=== PATIENT | male | born 1945 | race Caucasian/White ===

== ENCOUNTER 2018-03-19 16:09 | Emergency (ER) | payer OTHER ==
[~2018-03-19] VITALS: Ht 175.3 cm; Wt 100.0 kg
[~2018-03-19 16:09] MED LIST: ASA/1TAB6 PO; GABA-290 PO
[2018-03-19] MEDS ORDERED: CYCLOBENZAPRINE 10MG TABLET PO ONE (17:15)
[2018-03-19] MEDS ORDERED: KETOROLAC 30MG/ML VIAL IM ONE (17:15)
[2018-03-19 19:39] VITALS: BP 120/70
== END 2018-03-19 19:40 | disposition home or self-care (01) ==
LOC: ER 16:09
DX: M54.5 Low back pain (principal); I69.354 Hemiplegia and hemiparesis following cerebral infarction affecting left non-dominant side; I25.2 Old myocardial infarction; I10 Essential (primary) hypertension; E11.9 Type 2 diabetes mellitus without complications; Z87.891 Personal history of nicotine dependence; Z98.890 Other specified postprocedural states; Z79.899 Other long term (current) drug therapy
CPT/HCPCS: 72131; 96372; 99284; J1885

== ENCOUNTER 2018-05-10 22:07 | Inpatient (IN) | payer OTHER ==
[~2018-05-10] VITALS: Ht 177.8 cm; Wt 95.3 kg
[2018-05-11] MEDS ORDERED: SODIUM CHLORIDE 0.9% 1,000 ML IV ONE (00:40)
[2018-05-11] MEDS ORDERED: ONDANSETRON HCL 4MG/2ML INJ IV STA (00:40)
[2018-05-11 01:14] LABS: BASOPHILS % 0.5 % (0.0-2.0); HEMATOCRIT. 36.6 % (42.0-52.0); HEMOGLOBIN. 12.4 g/dL (14.0-18.0); LYMPHOCYTES % 14.5 % (20.0-50.0); MEAN CORPUSCULAR HEMOGLOBIN 30.7 pg (28.0-32.0); MEAN CORPUSCULAR VOLUME 90.6 fL (80.0-94.0); MEAN PLATELET VOLUME 6.5 fl (7.4-10.4); MONOCYTES % 6.5 % (2.0-8.0); NEUTROPHILS % 76.5 % (40.0-76.0); PLATELET 211 x1000/uL (130-400); RED BLOOD CELL COUNT 4.04 mill/uL (4.7-6.1); RED CELL DISTRIBUTION WIDTH 13.6 % (11.6-14.6)
[2018-05-11 01:18] LABS: CHLORIDE 112 mEq/L (98-107)
[2018-05-11 01:19] LABS: PROTHROMBIN TIME 10.1 sec (9.1-11.1)
[2018-05-11] MEDS ORDERED: ASPIRIN 81MG TABLET PO SCH (01:45)
[2018-05-11] MEDS ORDERED: CLONIDINE 0.1MG TABLET PO PRN (02:45)
[2018-05-11 05:27] LABS: CLARITY URINE CLEAR (CLEAR); COLOR URINE YELLOW (YELLOW); KETONES URINE TRACE (NEGATIVE); LEUKOCYTE ESTERASE URINE NEGATIVE (NEGATIVE); NITRITE URINE NEGATIVE (NEGATIVE); OCCULT BLOOD URINE 2+ (NEGATIVE); PH URINE 5.5 (4.5-8.0); PROTEIN URINE 4+ (NEGATIVE); UROBILINOGEN URINE 0.2 E.U./dL (0.2-1.0)
[2018-05-11 08:00] VITALS: BP 191/86
[2018-05-11] MEDS ORDERED: ONDANSETRON HCL 4MG/2ML INJ IV PRN (11:00)
[2018-05-11] MEDS ORDERED: DOCUSATE SODIUM 100MG CAPSULE PO PRN (11:00)
[2018-05-11] MEDS ORDERED: IPRATROPIUM/ALBUTEROL 0.5-3(2.5)MG/3ML NEB INH PRN (11:00)
[2018-05-11] MEDS ORDERED: GUAIFENESIN 200MG/10ML SUGAR FREE UDC PO PRN (11:00)
[2018-05-11] MEDS ORDERED: ACETAMINOPHEN 650MG/20.3ML UDC GT PRN (11:00)
[2018-05-11] MEDS ORDERED: ACETAMINOPHEN 650MG SUPP PR PRN (11:00)
[2018-05-11] MEDS ORDERED: DEXTROSE 50% WATER 50ML SYRINGE IV PRN (11:00)
[2018-05-11] MEDS ORDERED: FOLI0.4T2 MT (11:49)
[2018-05-11] MEDS ORDERED: CLOP75TA16 PO (11:49)
[2018-05-11] MEDS ORDERED: BACL-141 PO (11:49)
[2018-05-11] MEDS ORDERED: GEMF600T4 PO (11:49)
[2018-05-11] MEDS ORDERED: CYAN-33 PO (11:49)
[2018-05-11] MEDS ORDERED: CLON-457 PO (11:49)
[2018-05-11] MEDS ORDERED: METO-385 PO (11:49)
[2018-05-11] MEDS ORDERED: OMEG-79 PO (11:49)
[2018-05-11 12:00] VITALS: BP 156/87
[2018-05-11] MEDS: LOSARTAN POTASSIUM 100 MG TABLET PO SCH (12:20)
[2018-05-11] MEDS: ASPIRIN 81MG TABLET PO SCH (12:20)
[2018-05-11] MEDS: ENOXAPARIN 40MG/0.4ML SYR SUBCUT SCH (12:20)
[2018-05-11] MEDS: CLOPIDOGREL 75MG TABLET PO SCH (12:20)
[2018-05-11] MEDS: SODIUM CHLORIDE 0.45% 1,000 ML IV SCH (12:21)
[2018-05-11] MEDS: INSULIN LISPRO 100 UNITS/ML SUBCUT SCH ×3 (12:22→21:05)
[2018-05-11] MEDS: BLOOD SUGAR DIAGNOSTIC STRIP TEST SCH ×3 (12:23→21:05)
[2018-05-11] MEDS: SODIUM CHLORIDE 0.9% INJ 3ML FLUSH IVF SCH ×2 (14:00→21:07)
[2018-05-11 16:00] VITALS: BP 142/80
[2018-05-11 16:55] LABS: CREATINE KINASE MB FRACTION 3.8 ng/mL (0.5-3.6)
[2018-05-11 17:28] LABS: CLARITY URINE CLEAR (CLEAR); COLOR URINE YELLOW (YELLOW); KETONES URINE NEGATIVE (NEGATIVE); LEUKOCYTE ESTERASE URINE NEGATIVE (NEGATIVE); NITRITE URINE NEGATIVE (NEGATIVE); OCCULT BLOOD URINE 2+ (NEGATIVE); PH URINE 5.5 (4.5-8.0); PROTEIN URINE 4+ (NEGATIVE); SPECIFIC GRAVITY URINE 1.018 (1.005-1.030); UROBILINOGEN URINE 0.2 E.U./dL (0.2-1.0)
[2018-05-11 17:45] LABS: *AMPHETAMINES SCREEN URINE NEGATIVE (NEGATIVE); *BARBITURATES SCREEN URINE NEGATIVE (NEGATIVE); *BENZODIAZEPINES SCREEN URINE NEGATIVE (NEGATIVE); *COCAINE SCREEN URINE NEGATIVE (NEGATIVE); METHADONE URINE SCREEN NEGATIVE (NEGATIVE); OPIATES URINE SCREEN PRESUMTIVE POSITIVE (NEGATIVE)
[2018-05-11 17:46] LABS: CANNABINOID URINE SCREEN NEGATIVE (NEGATIVE); PHENCYCLIDINE URINE SCREEN NEGATIVE (NEGATIVE)
[2018-05-11 20:00] VITALS: BP 212/96
[2018-05-11] MEDS: METOPROLOL TARTRATE 50MG TABLET PO SCH (20:37)
[2018-05-11] MEDS: AMLODIPINE 5MG TABLET PO SCH (20:37)
[2018-05-11] MEDS: CLONIDINE 0.1MG TABLET PO PRN (20:38)
[2018-05-11] MEDS: ATORVASTATIN CALCIUM 40MG TABLET PO SCH (20:42)
[2018-05-11 21:00] VITALS: BP 185/80
[2018-05-11 23:09] LABS: CREATINE KINASE MB FRACTION 3.6 ng/mL (0.5-3.6)
[2018-05-12] MEDS: SODIUM CHLORIDE 0.45% 1,000 ML IV SCH ×2 (00:20→13:40)
[2018-05-12 00:31] VITALS: BP 117/61
[2018-05-12 04:00] VITALS: BP 185/97
[2018-05-12 05:47] LABS: BASOPHILS % 0.3 % (0.0-2.0); EOSINOPHILS % 3.9 % (0.0-5.0); HEMATOCRIT. 37.3 % (42.0-52.0); HEMOGLOBIN. 12.7 g/dL (14.0-18.0); LYMPHOCYTES % 18.3 % (20.0-50.0); MEAN CORPUSCULAR HEMOGLOBIN 31.4 pg (28.0-32.0); MEAN CORPUSCULAR VOLUME 91.9 fL (80.0-94.0); MEAN PLATELET VOLUME 6.7 fl (7.4-10.4); MONOCYTES % 7.2 % (2.0-8.0); NEUTROPHILS % 70.3 % (40.0-76.0); PLATELET 187 x1000/uL (130-400); RED BLOOD CELL COUNT 4.06 mill/uL (4.7-6.1)
[2018-05-12] MEDS: SODIUM CHLORIDE 0.9% INJ 3ML FLUSH IVF SCH ×3 (05:53→22:12)
[2018-05-12 05:55] LABS: CHLORIDE 109 mEq/L (98-107)
[2018-05-12] MEDS: BLOOD SUGAR DIAGNOSTIC STRIP TEST SCH ×4 (05:58→21:00)
[2018-05-12 06:04] LABS: LDL CHOLESTEROL 175 mg/dL (5-100)
[2018-05-12 06:06] LABS: HDL CHOLESTEROL 39 mg/dL (40-59)
[2018-05-12] MEDS: ENOXAPARIN 40MG/0.4ML SYR SUBCUT SCH (08:15)
[2018-05-12] MEDS: INSULIN LISPRO 100 UNITS/ML SUBCUT SCH ×4 (08:15→21:00)
[2018-05-12] MEDS: LOSARTAN POTASSIUM 100 MG TABLET PO SCH (08:16)
[2018-05-12] MEDS: CLOPIDOGREL 75MG TABLET PO SCH (08:16)
[2018-05-12] MEDS: AMLODIPINE 5MG TABLET PO SCH ×2 (08:16→22:11)
[2018-05-12] MEDS: ASPIRIN 81MG TABLET PO SCH (08:17)
[2018-05-12] MEDS: METOPROLOL TARTRATE 50MG TABLET PO SCH ×2 (08:24→21:00)
[2018-05-12 08:29] VITALS: BP 194/80
[2018-05-12] MEDS: CLONIDINE 0.1MG TABLET PO PRN (12:24)
[2018-05-12 12:25] VITALS: BP 187/87
[2018-05-12] MEDS: CLONIDINE 0.2MG TABLET PO SCH ×2 (14:00→22:11)
[2018-05-12 16:47] VITALS: BP 162/63
[2018-05-12 20:24] VITALS: BP 162/82
[2018-05-12] MEDS: ATORVASTATIN CALCIUM 40MG TABLET PO SCH (22:11)
[2018-05-13 00:48] VITALS: BP 139/75
[2018-05-13] MEDS: SODIUM CHLORIDE 0.45% 1,000 ML IV SCH (03:04)
[2018-05-13] MEDS: ACETAMINOPHEN 325MG TABLET PO PRN ×2 (03:04→08:33)
[2018-05-13 04:40] VITALS: BP 176/79
[2018-05-13] MEDS: CLONIDINE 0.2MG TABLET PO SCH (06:26)
[2018-05-13 06:27] LABS: BASOPHILS % 0.3 % (0.0-2.0); EOSINOPHILS % 3.7 % (0.0-5.0); HEMATOCRIT. 37.5 % (42.0-52.0); HEMOGLOBIN. 12.9 g/dL (14.0-18.0); LYMPHOCYTES % 18.6 % (20.0-50.0); MEAN CORPUSCULAR HEMOGLOBIN 31.2 pg (28.0-32.0); MEAN CORPUSCULAR VOLUME 90.5 fL (80.0-94.0); MONOCYTES % 8.8 % (2.0-8.0); NEUTROPHILS % 68.6 % (40.0-76.0); PLATELET 155 x1000/uL (130-400); RED BLOOD CELL COUNT 4.14 mill/uL (4.7-6.1); RED CELL DISTRIBUTION WIDTH 13.3 % (11.6-14.6)
[2018-05-13] MEDS: SODIUM CHLORIDE 0.9% INJ 3ML FLUSH IVF SCH (06:27)
[2018-05-13] MEDS: BLOOD SUGAR DIAGNOSTIC STRIP TEST SCH (06:27)
[2018-05-13] MEDS: ENOXAPARIN 40MG/0.4ML SYR SUBCUT SCH (08:32)
[2018-05-13] MEDS: LOSARTAN POTASSIUM 100 MG TABLET PO SCH (08:33)
[2018-05-13] MEDS: CLOPIDOGREL 75MG TABLET PO SCH (08:33)
[2018-05-13] MEDS: ASPIRIN 81MG TABLET PO SCH (08:33)
[2018-05-13 08:45] VITALS: BP 109/70
[2018-05-13] MEDS: INSULIN LISPRO 100 UNITS/ML SUBCUT SCH (08:49)
[2018-05-13] MEDS: METOPROLOL TARTRATE 50MG TABLET PO SCH (08:50)
[2018-05-13] MEDS: AMLODIPINE 5MG TABLET PO SCH (08:50)
[2018-05-13 11:31] VITALS: BP 109/70
[2018-05-13] MEDS ORDERED: ATORVASTATIN CALCIUM 20MG TABLET PO SCH (21:00)
== END 2018-05-13 12:26 | disposition home health service (06) | DRG 682 ==
LOC: ER 22:07 → 6WST 05-11 01:55 → ENRESERV 05-11 07:28
PROVIDERS: ADMIT Internal Medicine; ATTEND Internal Medicine
DX: N17.9 Acute kidney failure, unspecified (principal); G93.41 Metabolic encephalopathy; I50.32 Chronic diastolic (congestive) heart failure; I13.0 Hypertensive heart and chronic kidney disease with heart failure and stage 1 through stage 4 chronic kidney disease, or unspecified chronic kidney disease; I69.354 Hemiplegia and hemiparesis following cerebral infarction affecting left non-dominant side; N18.4 Chronic kidney disease, stage 4 (severe); E86.0 Dehydration; D64.9 Anemia, unspecified; K40.20 Bilateral inguinal hernia, without obstruction or gangrene, not specified as recurrent; E11.65 Type 2 diabetes mellitus with hyperglycemia; E11.40 Type 2 diabetes mellitus with diabetic neuropathy, unspecified; I25.10 Atherosclerotic heart disease of native coronary artery without angina pectoris; G47.33 Obstructive sleep apnea (adult) (pediatric); E66.9 Obesity, unspecified; E78.5 Hyperlipidemia, unspecified; N20.0 Calculus of kidney; M48.02 Spinal stenosis, cervical region; E11.22 Type 2 diabetes mellitus with diabetic chronic kidney disease; K57.30 Diverticulosis of large intestine without perforation or abscess without bleeding; Z87.442 Personal history of urinary calculi; Z87.891 Personal history of nicotine dependence; Z95.5 Presence of coronary angioplasty implant and graft; Z90.49 Acquired absence of other specified parts of digestive tract; I25.2 Old myocardial infarction; Z82.49 Family history of ischemic heart disease and other diseases of the circulatory system; Z68.30 Body mass index [BMI] 30.0-30.9, adult; Z79.1 Long term (current) use of non-steroidal anti-inflammatories (NSAID); Z79.899 Other long term (current) drug therapy
CPT/HCPCS: 36415; 71045; 76770; 80048; 80061; 80305; 82140; 82550; 82553; 82962; 83036; 83605; 84484; 93005; 93306; 96361; 96372; 96374; 97116; 97162; 99285; J1650; J1815; J2405; J7030

== ENCOUNTER 2018-09-02 17:40 | Emergency (ER) | payer OTHER ==
[~2018-09-02] VITALS: Ht 175.3 cm; Wt 100.0 kg
[~2018-09-02 17:40] MED LIST changes: +BACL-141 PO; +CLON-457 PO; +CLOP75TA16 PO; +CYAN-33 PO; +FOLI0.4T2 MT; +GEMF600T4 PO; +METO-385 PO; +OMEG-79 PO
[2018-09-02] MEDS ORDERED: INSLIS SUBCUT (17:49)
[2018-09-02] MEDS ORDERED: SODIUM CHLORIDE 0.9% 1,000 ML IV ONE (19:51)
[2018-09-02 20:51] LABS: BASOPHILS % 0.5 % (0.0-2.0); EOSINOPHILS % 2.2 % (0.0-5.0); HEMATOCRIT. 35.8 % (42.0-52.0); HEMOGLOBIN. 12.5 g/dL (14.0-18.0); MEAN CORPUSCULAR HEMOGLOBIN 32.1 pg (28.0-32.0); MEAN CORPUSCULAR VOLUME 91.7 fL (80.0-94.0); MEAN PLATELET VOLUME 7.1 fl (7.4-10.4); MONOCYTES % 7.9 % (2.0-8.0); NEUTROPHILS % 69.4 % (40.0-76.0); PLATELET 195 x1000/uL (130-400); RED CELL DISTRIBUTION WIDTH 14.4 % (11.6-14.6)
[2018-09-02 20:55] LABS: CHLORIDE 105 mEq/L (98-107)
[2018-09-02 21:02] LABS: BETA HYDROXYBUTYRATE 0.1 mMol/L (0.0-0.3)
[2018-09-02] MEDS ORDERED: INSULIN REGULAR (HUMULIN R) 300UNITS/3ML SUBCUT ONE ×2 (21:45→23:30)
[2018-09-02 23:03] LABS: CLARITY URINE CLEAR (CLEAR); COLOR URINE YELLOW (YELLOW); KETONES URINE NEGATIVE (NEGATIVE); LEUKOCYTE ESTERASE URINE NEGATIVE (NEGATIVE); NITRITE URINE NEGATIVE (NEGATIVE); OCCULT BLOOD URINE TRACE (NEGATIVE); PH URINE 5.5 (4.5-8.0); PROTEIN URINE 3+ (NEGATIVE); SPECIFIC GRAVITY URINE 1.022 (1.005-1.030); UROBILINOGEN URINE 0.2 E.U./dL (0.2-1.0)
[2018-09-03 01:35] VITALS: BP 117/69
== END 2018-09-03 01:35 | disposition home or self-care (01) ==
LOC: ER 17:40
DX: E11.22 Type 2 diabetes mellitus with diabetic chronic kidney disease (principal); E11.65 Type 2 diabetes mellitus with hyperglycemia; I12.9 Hypertensive chronic kidney disease with stage 1 through stage 4 chronic kidney disease, or unspecified chronic kidney disease; N18.9 Chronic kidney disease, unspecified; D63.1 Anemia in chronic kidney disease; I25.2 Old myocardial infarction; Z86.73 Personal history of transient ischemic attack (TIA), and cerebral infarction without residual deficits; Z98.890 Other specified postprocedural states; Z79.4 Long term (current) use of insulin; Z91.14 Patient's other noncompliance with medication regimen
CPT/HCPCS: 36415; 80053; 81003; 82010; 82962; 83605; 85025; 93005; 96360; 96372; 99284; J1815; J7030

== ENCOUNTER 2019-07-14 14:52 | Inpatient (IN) | payer OTHER ==
[~2019-07-14] VITALS: Ht 177.8 cm; Wt 96.2 kg
[~2019-07-14 14:52] MED LIST changes: -CLOP75TA16 PO; +CLOP75TA4 PO; -GEMF600T4 PO; +GEMF600T5 PO; +INSLIS SUBCUT
[2019-07-14 17:48] LABS: BASOPHILS % 1.3 % (0.0-2.0); EOSINOPHILS % 3.2 % (0.0-5.0); HEMATOCRIT. 31.7 % (42.0-52.0); HEMOGLOBIN. 10.8 g/dL (14.0-18.0); LYMPHOCYTES % 14.2 % (20.0-50.0); MEAN CORPUSCULAR HEMOGLOBIN 31.4 pg (28.0-32.0); MEAN CORPUSCULAR VOLUME 92.7 fL (80.0-94.0); MEAN PLATELET VOLUME 6.7 fl (7.4-10.4); MONOCYTES % 8.9 % (2.0-8.0); NEUTROPHILS % 72.4 % (40.0-76.0); PLATELET 181 x1000/uL (130-400); RED BLOOD CELL COUNT 3.42 mill/uL (4.7-6.1); RED CELL DISTRIBUTION WIDTH 14.4 % (11.6-14.6)
[2019-07-14 17:53] LABS: CHLORIDE 114 mEq/L (98-107)
[2019-07-14] MEDS ORDERED: ASPIRIN 325MG TABLET PO ONE (18:30)
[2019-07-14 23:40] VITALS: BP_SYST 174; BP_DIAS 83; BP_DIAS 85
[2019-07-15] VITALS: BP 191/80
[2019-07-15] MEDS ORDERED: DEXTROSE 50% WATER 50ML SYRINGE IV PRN (01:15)
[2019-07-15] MEDS ORDERED: ACETAMINOPHEN 650MG/20.3ML UDC PO PRN (01:15)
[2019-07-15] MEDS: CLONIDINE 0.1MG TABLET PO PRN ×2 (01:56→16:22)
[2019-07-15 04:00] VITALS: BP 176/82
[2019-07-15] MEDS: AMLODIPINE 5MG TABLET PO SCH ×2 (04:44→21:00)
[2019-07-15 06:39] LABS: BASOPHILS % 0.2 % (0.0-2.0); HEMATOCRIT. 30.4 % (42.0-52.0); HEMOGLOBIN. 10.4 g/dL (14.0-18.0); LYMPHOCYTES % 18.6 % (20.0-50.0); MEAN CORPUSCULAR HEMOGLOBIN 31.9 pg (28.0-32.0); MEAN CORPUSCULAR VOLUME 93.6 fL (80.0-94.0); NEUTROPHILS % 68.2 % (40.0-76.0); PLATELET 152 x1000/uL (130-400); RED BLOOD CELL COUNT 3.25 mill/uL (4.7-6.1); RED CELL DISTRIBUTION WIDTH 14.5 % (11.6-14.6)
[2019-07-15 06:56] LABS: PHOSPHORUS 7.1 mg/dL (2.5-4.9)
[2019-07-15 06:59] LABS: T4 FREE 0.6 ng/dL (0.76-1.46)
[2019-07-15] MEDS: BLOOD SUGAR DIAGNOSTIC STRIP TEST SCH ×4 (07:40→21:07)
[2019-07-15 08:41] VITALS: BP 159/54
[2019-07-15] MEDS: INSULIN LISPRO 100 UNITS/ML SUBCUT SCH ×4 (08:50→21:27)
[2019-07-15] MEDS: CLOPIDOGREL 75MG TABLET PO SCH (08:50)
[2019-07-15] MEDS ORDERED: HYDRALAZINE 20MG/ML VIAL IV PRN (11:00)
[2019-07-15 12:30] VITALS: BP 143/71
[2019-07-15 13:01] LABS: INR 0.9
[2019-07-15 13:36] LABS: HEPATITIS B SURFACE ANTIGEN NEGATIVE
[2019-07-15] MEDS ORDERED: ONDANSETRON HCL 4MG/2ML INJ IV PRN (16:15)
[2019-07-15] MEDS ORDERED: LORAZEPAM 2MG/ML CPJ IV PRN (16:15)
[2019-07-15] MEDS ORDERED: DIPHENHYDRAMINE 50MG/ML VIAL IV PRN (16:15)
[2019-07-15] MEDS ORDERED: MORPHINE SULFATE 2 MG/ML CPJ (NOT FOR IM USE) IV PRN (16:15)
[2019-07-15 17:28] VITALS: BP 164/80
[2019-07-15 20:00] VITALS: BP 132/62
[2019-07-15] MEDS ORDERED: NITROGLYCERIN 0.4MG TABLET SL SL PRN (20:15)
[2019-07-15 21:06] LABS: CREATINE KINASE MB FRACTION 3.5 ng/mL (0.5-3.6)
[2019-07-16] VITALS (15 sets, daily range): BP systolic 130–182; BP diastolic 65–82
[2019-07-16] MEDS: TEMAZEPAM 15MG CAPSULE PO PRN ×2 (00:35→23:27)
[2019-07-16] MEDS: CLONIDINE 0.1MG TABLET PO PRN (05:10)
[2019-07-16] MEDS: BLOOD SUGAR DIAGNOSTIC STRIP TEST SCH ×4 (06:01→21:27)
[2019-07-16 06:30] LABS: BASOPHILS % 0.4 % (0.0-2.0); EOSINOPHILS % 3.7 % (0.0-5.0); HEMOGLOBIN. 10.4 g/dL (14.0-18.0); LYMPHOCYTES % 18.4 % (20.0-50.0); MEAN CORPUSCULAR HEMOGLOBIN 32.2 pg (28.0-32.0); MEAN CORPUSCULAR VOLUME 93.1 fL (80.0-94.0); MEAN PLATELET VOLUME 6.9 fl (7.4-10.4); MONOCYTES % 7.6 % (2.0-8.0); NEUTROPHILS % 69.9 % (40.0-76.0); PLATELET 169 x1000/uL (130-400); RED BLOOD CELL COUNT 3.22 mill/uL (4.7-6.1); RED CELL DISTRIBUTION WIDTH 14.8 % (11.6-14.6)
[2019-07-16 06:41] LABS: PHOSPHORUS 7.3 mg/dL (2.5-4.9)
[2019-07-16] MEDS ORDERED: CEFAZOLIN 1000MG PREMIX 50 ML IV ONE ×2 (07:30)
[2019-07-16] MEDS ORDERED: FENTANYL CITRATE/PF 50MCG/ML 2ML VIAL ONE (07:30)
[2019-07-16] MEDS ORDERED: LIDOCAINE HCL 1% 20ML VIAL (Pyxis) INJ ONE (07:38)
[2019-07-16] MEDS ORDERED: SODIUM BICARBONATE 4% (2.4MEQ) 5ML VIAL IV ONE (07:38)
[2019-07-16] MEDS: INSULIN LISPRO 100 UNITS/ML SUBCUT SCH ×4 (08:10→21:28)
[2019-07-16] MEDS ORDERED: FENTANYL CITRATE/PF 50MCG/ML 2ML VIAL IV SCH (08:45)
[2019-07-16] MEDS: ASPIRIN 81MG EC TABLET PO SCH (08:51)
[2019-07-16] MEDS: AMLODIPINE 5MG TABLET PO SCH ×2 (08:51→21:27)
[2019-07-16] MEDS: CLOPIDOGREL 75MG TABLET PO SCH (08:52)
[2019-07-16] MEDS ORDERED: HYDRALAZINE HCL 50MG TABLET PO SCH (11:00)
[2019-07-16] MEDS: HYDRALAZINE HCL 50MG TABLET PO SCH ×2 (14:00→21:27)
[2019-07-16] MEDS ORDERED: HEPARIN SODIUM 1,000 UNIT/1ML VIAL IV NR (17:18)
[2019-07-16] MEDS ORDERED: MANNITOL 12.5G (25%) VIAL 50ML IV PRN (18:00)
[2019-07-16] MEDS: CALCIUM ACETATE 667 MG TABLET PO SCH (18:10)
[2019-07-16 21:21] LABS: HEPATITIS B SURFACE AB < 3.1 mIU/mL
[2019-07-17] VITALS: BP 145/64
[2019-07-17 04:00] VITALS: BP 148/79
[2019-07-17 05:08] LABS: HIV SCREEN 4G Non Reactive (Non Reactive)
[2019-07-17 05:14] LABS: BASOPHILS % 0.3 % (0.0-2.0); EOSINOPHILS % 2.5 % (0.0-5.0); HEMATOCRIT. 31.3 % (42.0-52.0); HEMOGLOBIN. 10.9 g/dL (14.0-18.0); LYMPHOCYTES % 15.9 % (20.0-50.0); MEAN CORPUSCULAR VOLUME 91.8 fL (80.0-94.0); MONOCYTES % 7.3 % (2.0-8.0); PLATELET 155 x1000/uL (130-400); RED BLOOD CELL COUNT 3.41 mill/uL (4.7-6.1); RED CELL DISTRIBUTION WIDTH 14.7 % (11.6-14.6)
[2019-07-17] MEDS: HYDRALAZINE HCL 50MG TABLET PO SCH ×3 (06:19→23:35)
[2019-07-17] MEDS: INSULIN LISPRO 100 UNITS/ML SUBCUT SCH ×4 (07:47→23:44)
[2019-07-17] MEDS: BLOOD SUGAR DIAGNOSTIC STRIP TEST SCH ×4 (07:47→23:36)
[2019-07-17] MEDS: CLOPIDOGREL 75MG TABLET PO SCH (08:45)
[2019-07-17] MEDS: CALCIUM ACETATE 667 MG TABLET PO SCH ×3 (08:46→18:49)
[2019-07-17] MEDS: CALCITRIOL 0.25MCG CAPSULE PO SCH (08:46)
[2019-07-17] MEDS: AMLODIPINE 5MG TABLET PO SCH ×2 (08:46→23:36)
[2019-07-17] MEDS: ASPIRIN 81MG EC TABLET PO SCH (08:47)
[2019-07-17] MEDS ORDERED: GABAPENTIN 300MG CAPSULE PO SCH ×2 (13:00→21:00)
[2019-07-17] MEDS ORDERED: CALC668T PO (13:50)
[2019-07-17] MEDS ORDERED: HYDR-4135 MT (13:50)
[2019-07-17] MEDS ORDERED: AMLO5TAB4 MT (13:50)
[2019-07-17] MEDS ORDERED: CALC0.253 MT (13:50)
[2019-07-17 20:00] VITALS: BP 128/62
[2019-07-17 23:23] VITALS: BP 131/69
[2019-07-18 04:00] VITALS: BP 142/62
[2019-07-18 07:00] LABS: HEMATOCRIT 32.3 % (42.0-52.0); MEAN CORPUSCULAR HEMOGLOBIN 31.7 pg (28.0-32.0); PLATELET 142 x1000/uL (130-400); RED BLOOD CELL COUNT 3.47 mill/uL (4.7-6.1); RED CELL DISTRIBUTION WIDTH 14.6 % (11.6-14.6)
[2019-07-18] MEDS: HYDRALAZINE HCL 50MG TABLET PO SCH (07:17)
[2019-07-18] MEDS: BLOOD SUGAR DIAGNOSTIC STRIP TEST SCH ×2 (07:17→13:33)
[2019-07-18] MEDS: INSULIN LISPRO 100 UNITS/ML SUBCUT SCH ×2 (07:53→13:58)
[2019-07-18 08:00] VITALS: BP 132/80
[2019-07-18] MEDS: CLOPIDOGREL 75MG TABLET PO SCH (10:01)
[2019-07-18] MEDS: CALCIUM ACETATE 667 MG TABLET PO SCH ×2 (10:01→13:56)
[2019-07-18] MEDS: ASPIRIN 81MG EC TABLET PO SCH (10:01)
[2019-07-18] MEDS: CALCITRIOL 0.25MCG CAPSULE PO SCH (10:02)
[2019-07-18] MEDS: AMLODIPINE 5MG TABLET PO SCH (10:38)
[2019-07-18 12:00] VITALS: BP 128/78
[2019-07-18] MEDS ORDERED: GABAPENTIN 300MG CAPSULE PO SCH ×2 (12:00→21:00)
[2019-07-18 16:10] VITALS: BP 123/59
== END 2019-07-18 16:42 | disposition home or self-care (01) | DRG 291 ==
LOC: ER 14:52 → EDBEDREQ 19:16 → EDBEDREQTM 19:16 → ENRESERV 22:59 → 7WST 07-15 00:04
PROVIDERS: ADMIT Internal Medicine; ATTEND Internal Medicine
PROC: 02HV33Z Insertion of Infusion Device into Superior Vena Cava, Percutaneous Approach (ICD-10-PCS; principal; 2019-07-16)
PROC: B5181ZA Fluoroscopy of Superior Vena Cava using Low Osmolar Contrast, Guidance (ICD-10-PCS; 2019-07-16)
PROC: 5A1D70Z Performance of Urinary Filtration, Intermittent, Less than 6 Hours Per Day (ICD-10-PCS; 2019-07-16)
PROC: B548ZZA Ultrasonography of Superior Vena Cava, Guidance (ICD-10-PCS; 2019-07-16)
PROC: 5A1D70Z Performance of Urinary Filtration, Intermittent, Less than 6 Hours Per Day (ICD-10-PCS; 2019-07-17)
DX: I13.2 Hypertensive heart and chronic kidney disease with heart failure and with stage 5 chronic kidney disease, or end stage renal disease (principal); I50.33 Acute on chronic diastolic (congestive) heart failure; N18.6 End stage renal disease; I69.354 Hemiplegia and hemiparesis following cerebral infarction affecting left non-dominant side; D64.9 Anemia, unspecified; E11.22 Type 2 diabetes mellitus with diabetic chronic kidney disease; E11.319 Type 2 diabetes mellitus with unspecified diabetic retinopathy without macular edema; E11.65 Type 2 diabetes mellitus with hyperglycemia; E78.5 Hyperlipidemia, unspecified; E83.39 Other disorders of phosphorus metabolism; E87.5 Hyperkalemia; I25.10 Atherosclerotic heart disease of native coronary artery without angina pectoris; K57.90 Diverticulosis of intestine, part unspecified, without perforation or abscess without bleeding; M19.90 Unspecified osteoarthritis, unspecified site; M48.02 Spinal stenosis, cervical region; E11.21 Type 2 diabetes mellitus with diabetic nephropathy; E11.41 Type 2 diabetes mellitus with diabetic mononeuropathy; E66.01 Morbid (severe) obesity due to excess calories; I25.2 Old myocardial infarction; Z87.441 Personal history of nephrotic syndrome; Z87.891 Personal history of nicotine dependence; Z91.19 Patient's noncompliance with other medical treatment and regimen; Z95.5 Presence of coronary angioplasty implant and graft; Z83.3 Family history of diabetes mellitus; Z79.899 Other long term (current) drug therapy; Z79.4 Long term (current) use of insulin; Z90.49 Acquired absence of other specified parts of digestive tract; Z68.30 Body mass index [BMI] 30.0-30.9, adult
CPT/HCPCS: 36415; 36558; 71046; 76937; 77001; 80048; 80053; 80061; 82306; 82550; 82553; 82570; 82962; 83735; 83880; 83935; 83970; 84100; 84300; 84439; 84443; 84484; 85025; 85027; 86705; 86706; 86803; 87340; 87389; 93005; 93306; 93970; 97162; 99152; 99153; 99285; C1750; C1769; J0690; J1200; J1642; J1644; J1815; J3010; J3490; G0500

== ENCOUNTER 2019-08-11 12:37 | Emergency (ER) | payer OTHER ==
[2019-08-11] VITALS (8 sets, daily range): BP systolic 137–170; BP diastolic 66–79
[~2019-08-11] VITALS: Ht 175.3 cm; Wt 98.0 kg
[~2019-08-11 12:37] MED LIST changes: +AMLO5TAB4 MT; -BACL-141 PO; +CALC0.253 MT; +CALC668T PO; +HYDR-4135 MT
[2019-08-11 14:45] LABS: BASOPHILS % 0.7 % (0.0-2.0); EOSINOPHILS % 3.2 % (0.0-5.0); HEMOGLOBIN. 11.1 g/dL (14.0-18.0); LYMPHOCYTES % 15.6 % (20.0-50.0); MEAN CORPUSCULAR HEMOGLOBIN 32.1 pg (28.0-32.0); MEAN CORPUSCULAR VOLUME 92.3 fL (80.0-94.0); MEAN PLATELET VOLUME 7.2 fl (7.4-10.4); MONOCYTES % 7.8 % (2.0-8.0); NEUTROPHILS % 72.7 % (40.0-76.0); PLATELET 167 x1000/uL (130-400); RED BLOOD CELL COUNT 3.47 mill/uL (4.7-6.1); RED CELL DISTRIBUTION WIDTH 14.7 % (11.6-14.6)
[2019-08-11 14:51] LABS: INR 0.9; PROTHROMBIN TIME 10.3 sec (9.6-11.0)
[2019-08-11 14:56] LABS: CHLORIDE 100 mEq/L (98-107)
[2019-08-11] MEDS ORDERED: CEFAZOLIN 1000MG PREMIX 50 ML IV NR (15:00)
[2019-08-11] MEDS ORDERED: CEFAZOLIN 1000MG PREMIX 50 ML IV ONE (15:06)
[2019-08-11] MEDS ORDERED: HEPARIN 1000 UNITS/ML 10ML ONE (15:07)
[2019-08-11] MEDS ORDERED: LIDOCAINE HCL 1% 20ML VIAL (Pyxis) INJ ONE (15:07)
[2019-08-11] MEDS ORDERED: SODIUM BICARBONATE 4% (2.4MEQ) 5ML VIAL IV ONE (15:07)
== END 2019-08-11 16:55 | disposition home or self-care (01) ==
LOC: ER 12:37
DX: T82.41XA Breakdown (mechanical) of vascular dialysis catheter, initial encounter (principal); I12.0 Hypertensive chronic kidney disease with stage 5 chronic kidney disease or end stage renal disease; N18.6 End stage renal disease; E11.9 Type 2 diabetes mellitus without complications; Z99.2 Dependence on renal dialysis; Z86.73 Personal history of transient ischemic attack (TIA), and cerebral infarction without residual deficits; Z95.820 Peripheral vascular angioplasty status with implants and grafts; Z87.891 Personal history of nicotine dependence; Z79.899 Other long term (current) drug therapy; Z79.4 Long term (current) use of insulin
CPT/HCPCS: 36415; 77001; 80053; 85025; 85610; 96365; 99284; C1769; J0690; J1644; J3490

== ENCOUNTER 2021-02-03 14:10 | Emergency (ER) | payer OTHER ==
[~2021-02-03] VITALS: Ht 172.7 cm; Wt 73.0 kg
[~2021-02-03 14:10] MED LIST changes: -FOLI0.4T2 MT; +FOLI0.4T6 MT; -GEMF600T5 PO; +GEMF600T90 PO
[2021-02-03 15:54] LABS: BASOPHILS % 0.3 % (0.0-2.0); EOSINOPHILS % 1.6 % (0.0-5.0); HEMATOCRIT. 37.1 % (42.0-52.0); HEMOGLOBIN. 13.3 g/dL (14.0-18.0); LYMPHOCYTES % 19.1 % (20.0-50.0); MEAN CORPUSCULAR HEMOGLOBIN 34.2 pg (28.0-32.0); MEAN PLATELET VOLUME 6.8 fl (7.4-10.4); MONOCYTES % 6.4 % (2.0-8.0); NEUTROPHILS % 72.6 % (40.0-76.0); PLATELET 174 x1000/uL (130-400); RED CELL DISTRIBUTION WIDTH 14.1 % (11.6-14.6)
[2021-02-03 15:56] LABS: CHLORIDE 93 mEq/L (98-107)
[2021-02-03 18:52] VITALS: BP 165/84
== END 2021-02-03 19:47 | disposition home or self-care (01) ==
LOC: ER 14:10
DX: I20.9 Angina pectoris, unspecified (principal); I10 Essential (primary) hypertension; R77.8 Other specified abnormalities of plasma proteins; E11.9 Type 2 diabetes mellitus without complications; Z79.4 Long term (current) use of insulin; Z79.899 Other long term (current) drug therapy; Z86.73 Personal history of transient ischemic attack (TIA), and cerebral infarction without residual deficits
CPT/HCPCS: 36415; 71045; 80053; 84484; 85025; 93005; 99285

== ENCOUNTER 2021-02-15 13:17 | Inpatient (IN) | payer OTHER ==
[~2021-02-15] VITALS: Ht 165.1 cm; Wt 92.5 kg
[~2021-02-15 13:17] MED LIST changes: +CLOP-31 PO; -CLOP75TA4 PO
[2021-02-15 14:00] LABS: BASOPHILS % 0.8 % (0.0-2.0); EOSINOPHILS % 1.7 % (0.0-5.0); HEMATOCRIT. 37.8 % (42.0-52.0); HEMOGLOBIN. 13.3 g/dL (14.0-18.0); LYMPHOCYTES % 20.7 % (20.0-50.0); MEAN CORPUSCULAR HEMOGLOBIN 33.5 pg (28.0-32.0); MEAN CORPUSCULAR VOLUME 95.3 fL (80.0-94.0); MEAN PLATELET VOLUME 7.2 fl (7.4-10.4); MONOCYTES % 6.8 % (2.0-8.0); PLATELET 167 x1000/uL (130-400); RED BLOOD CELL COUNT 3.97 mill/uL (4.7-6.1); RED CELL DISTRIBUTION WIDTH 14.3 % (11.6-14.6)
[2021-02-15 14:06] LABS: CHLORIDE 95 mEq/L (98-107)
[2021-02-15] MEDS ORDERED: ONDANSETRON HCL 4MG/2ML INJ IV PRN (15:45)
[2021-02-15] MEDS ORDERED: DOCUSATE SODIUM 100MG CAPSULE PO PRN (15:45)
[2021-02-15] MEDS ORDERED: MORPHINE SULFATE 2 MG/ML CPJ (NOT FOR IM USE) IV PRN (15:45)
[2021-02-15] MEDS ORDERED: IPRATROPIUM/ALBUTEROL 0.5-3(2.5)MG/3ML NEB NEB PRN (15:45)
[2021-02-15] MEDS ORDERED: ACETAMINOPHEN 650MG SUPP PR PRN (15:45)
[2021-02-15] MEDS ORDERED: ACETAMINOPHEN 325MG TABLET PO PRN (15:45)
[2021-02-15] MEDS: CLOPIDOGREL 75MG TABLET PO SCH ×2 (15:45→18:26)
[2021-02-15] MEDS ORDERED: MAGNESIUM/ALUMINUM HYDROXIDE/SIMETHICONE 30ML UDC PO PRN (15:45)
[2021-02-15] MEDS ORDERED: ENOXAPARIN 40MG/0.4ML SYR SUBCUT NR (15:45)
[2021-02-15] MEDS ORDERED: HYDROCODONE/ACETAMINOPHEN 5/325MG TABLET PO PRN (15:45)
[2021-02-15] MEDS ORDERED: DEXTROSE 50% WATER 50ML SYRINGE IV PRN (15:45)
[2021-02-15] MEDS ORDERED: GUAIFENESIN 200MG/10ML SUGAR FREE UDC PO PRN (15:45)
[2021-02-15] MEDS ORDERED: CLONIDINE 0.1MG TABLET PO PRN (15:45)
[2021-02-15] MEDS ORDERED: NA PHOS,M-B/NA PHOS,DI-BA ENEMA 118ML PR PRN (15:45)
[2021-02-15] MEDS ORDERED: DIPHENHYDRAMINE 50MG/ML VIAL IV PRN (15:45)
[2021-02-15] MEDS ORDERED: LORAZEPAM 0.5MG TABLET PO PRN (15:45)
[2021-02-15] MEDS: BLOOD SUGAR DIAGNOSTIC STRIP TEST SCH ×2 (17:00→21:00)
[2021-02-15 17:28] LABS: PROTHROMBIN TIME 10.3 sec (9.6-11.0)
[2021-02-15] MEDS: INSULIN LISPRO 100 UNITS/ML SUBCUT SCH (18:26)
[2021-02-15] MEDS: GEMFIBROZIL 600MG TABLET PO SCH (18:38)
[2021-02-15] MEDS: ATORVASTATIN CALCIUM 10MG TABLET PO SCH (21:00)
[2021-02-15] MEDS: NITROGLYCERIN OINT 1GM/INCH UDPKT TD SCH (22:00)
[2021-02-15 22:02] VITALS: BP 128/71
[2021-02-15] MEDS ORDERED: NALOXONE HCL 0.4MG/ML VIAL IV PRN (22:15)
[2021-02-16] MEDS: INSULIN LISPRO 100 UNITS/ML SUBCUT SCH ×5 (00:33→21:02)
[2021-02-16 04:00] VITALS: BP 128/71
[2021-02-16] MEDS ORDERED: DULA0.75 SQ (05:07)
[2021-02-16] MEDS ORDERED: INSU300I SQ (05:07)
[2021-02-16 06:29] LABS: CHLORIDE 98 mEq/L (98-107)
[2021-02-16 06:37] LABS: CREATINE KINASE 65 IU/L (39-308); T4 FREE 0.67 ng/dL (0.76-1.46)
[2021-02-16] MEDS: BLOOD SUGAR DIAGNOSTIC STRIP TEST SCH ×4 (06:40→21:03)
[2021-02-16 06:41] LABS: CREATINE KINASE MB FRACTION 2.7 ng/mL (0.5-3.6)
[2021-02-16 06:56] LABS: BASOPHILS % 0.3 % (0.0-2.0); EOSINOPHILS % 2.6 % (0.0-5.0); HEMATOCRIT. 36.3 % (42.0-52.0); HEMOGLOBIN. 12.2 g/dL (14.0-18.0); LYMPHOCYTES % 23.9 % (20.0-50.0); MEAN CORPUSCULAR HEMOGLOBIN 32.5 pg (28.0-32.0); MEAN CORPUSCULAR VOLUME 96.6 fL (80.0-94.0); MEAN PLATELET VOLUME 7.1 fl (7.4-10.4); MONOCYTES % 10.5 % (2.0-8.0); NEUTROPHILS % 62.7 % (40.0-76.0); PLATELET 154 x1000/uL (130-400); RED BLOOD CELL COUNT 3.76 mill/uL (4.7-6.1); RED CELL DISTRIBUTION WIDTH 14.3 % (11.6-14.6)
[2021-02-16] MEDS: GEMFIBROZIL 600MG TABLET PO SCH ×3 (07:10→18:06)
[2021-02-16] MEDS: NITROGLYCERIN OINT 1GM/INCH UDPKT TD SCH ×3 (07:34→20:59)
[2021-02-16 08:00] VITALS: BP 138/70
[2021-02-16] MEDS ORDERED: PNEUMOCOCCAL 23-VAL P-SAC VAC 0.5 ML IM ONE (08:00)
[2021-02-16] MEDS: ASPIRIN 81MG EC TABLET PO SCH (08:00)
[2021-02-16] MEDS ORDERED: ASPIRIN 81MG EC TABLET PO SCH (09:00)
[2021-02-16 12:00] VITALS: BP 114/68
[2021-02-16] MEDS ORDERED: REGADENOSON 0.4 MG/5 ML IV NR (14:00)
[2021-02-16] MEDS ORDERED: FENTANYL CITRATE/PF 50MCG/ML 5ML VIAL ONE (15:29)
[2021-02-16] MEDS ORDERED: MIDAZOLAM HCL 5 MG/5 ML VIAL ONE (15:29)
[2021-02-16] MEDS ORDERED: LIDOCAINE HCL 1% 20ML VIAL (Pyxis) INJ ONE (15:31)
[2021-02-16] MEDS ORDERED: IODIXANOL 320MG/ML 100 ML BOTTLE IV ONE (15:31)
[2021-02-16 16:00] VITALS: BP 143/71
[2021-02-16] MEDS: ENOXAPARIN 40MG/0.4ML SYR SUBCUT SCH (18:05)
[2021-02-16 20:00] VITALS: BP 137/62
[2021-02-16] MEDS: FAMOTIDINE 20MG TABLET PO SCH ×2 (20:58→21:29)
[2021-02-16] MEDS: ATORVASTATIN CALCIUM 10MG TABLET PO SCH ×2 (20:59→21:29)
[2021-02-17] VITALS: BP 194/65
[2021-02-17 04:00] VITALS: BP 152/74
[2021-02-17] MEDS: BLOOD SUGAR DIAGNOSTIC STRIP TEST SCH ×3 (05:46→17:13)
[2021-02-17] MEDS: NITROGLYCERIN OINT 1GM/INCH UDPKT TD SCH ×2 (06:22→13:22)
[2021-02-17] MEDS: INSULIN LISPRO 100 UNITS/ML SUBCUT SCH ×3 (07:10→17:33)
[2021-02-17 08:00] VITALS: BP 116/56
[2021-02-17] MEDS: CLOPIDOGREL 75MG TABLET PO SCH (08:11)
[2021-02-17] MEDS: GEMFIBROZIL 600MG TABLET PO SCH ×2 (08:11→17:32)
[2021-02-17] MEDS: ASPIRIN 81MG EC TABLET PO SCH (08:11)
[2021-02-17] MEDS ORDERED: REGADENOSON 0.4 MG/5 ML IV ONE (09:04)
[2021-02-17 12:00] VITALS: BP 138/79
[2021-02-17 12:15] LABS: BASOPHILS % 0.4 % (0.0-2.0); EOSINOPHILS % 1.2 % (0.0-5.0); HEMATOCRIT. 39.4 % (42.0-52.0); HEMOGLOBIN. 13.3 g/dL (14.0-18.0); LYMPHOCYTES % 11.1 % (20.0-50.0); MEAN CORPUSCULAR HEMOGLOBIN 33.1 pg (28.0-32.0); MEAN CORPUSCULAR VOLUME 98.1 fL (80.0-94.0); MEAN PLATELET VOLUME 7.2 fl (7.4-10.4); MONOCYTES % 6.1 % (2.0-8.0); NEUTROPHILS % 81.2 % (40.0-76.0); PLATELET 143 x1000/uL (130-400); RED BLOOD CELL COUNT 4.01 mill/uL (4.7-6.1); RED CELL DISTRIBUTION WIDTH 14.5 % (11.6-14.6)
[2021-02-17 13:35] LABS: PHOSPHORUS 6.9 mg/dL (2.5-4.9)
[2021-02-17] MEDS ORDERED: ISOS20TA57 PO (14:10)
[2021-02-17 16:00] VITALS: BP 138/69
[2021-02-17] MEDS: ENOXAPARIN 40MG/0.4ML SYR SUBCUT SCH (16:00)
[2021-02-17 16:50] VITALS: BP 138/69
== END 2021-02-17 19:28 | disposition home or self-care (01) | DRG 280 ==
LOC: ER 13:17 → MICUSO 14:42 → EDBEDREQ 14:43 → EDBEDREQTM 14:43 → 7EST 22:04
PROVIDERS: ADMIT Internal Medicine; ATTEND Internal Medicine
PROC: 5A1D70Z Performance of Urinary Filtration, Intermittent, Less than 6 Hours Per Day (ICD-10-PCS; principal; 2021-02-17)
DX: I21.9 Acute myocardial infarction, unspecified (principal); I50.33 Acute on chronic diastolic (congestive) heart failure; N18.6 End stage renal disease; I13.2 Hypertensive heart and chronic kidney disease with heart failure and with stage 5 chronic kidney disease, or end stage renal disease; E87.1 Hypo-osmolality and hyponatremia; I69.352 Hemiplegia and hemiparesis following cerebral infarction affecting left dominant side; I24.9 Acute ischemic heart disease, unspecified; D64.9 Anemia, unspecified; E11.22 Type 2 diabetes mellitus with diabetic chronic kidney disease; E11.40 Type 2 diabetes mellitus with diabetic neuropathy, unspecified; E11.319 Type 2 diabetes mellitus with unspecified diabetic retinopathy without macular edema; E11.65 Type 2 diabetes mellitus with hyperglycemia; E11.21 Type 2 diabetes mellitus with diabetic nephropathy; E66.9 Obesity, unspecified; E78.1 Pure hyperglyceridemia; E78.5 Hyperlipidemia, unspecified; F17.210 Nicotine dependence, cigarettes, uncomplicated; I25.110 Atherosclerotic heart disease of native coronary artery with unstable angina pectoris; Z20.822 Contact with and (suspected) exposure to COVID-19; K57.90 Diverticulosis of intestine, part unspecified, without perforation or abscess without bleeding; I25.2 Old myocardial infarction; Z79.4 Long term (current) use of insulin; Z83.3 Family history of diabetes mellitus; Z87.441 Personal history of nephrotic syndrome; Z95.5 Presence of coronary angioplasty implant and graft; Z99.2 Dependence on renal dialysis; Z79.899 Other long term (current) drug therapy; Z68.33 Body mass index [BMI] 33.0-33.9, adult; Z79.02 Long term (current) use of antithrombotics/antiplatelets
CPT/HCPCS: 36415; 71045; 78452; 80048; 80053; 82550; 82553; 82962; 83036; 83735; 83880; 84100; 84439; 84443; 84484; 85025; 87426; 90732; 93005; 93017; 93306; 93970; 99285; A9500; J1650; J1815; J2250; J2785; J3010; J3490; Q9967

== ENCOUNTER 2021-03-14 13:06 | Emergency (ER) | payer OTHER ==
[~2021-03-14] VITALS: Ht 172.7 cm; Wt 91.0 kg
[~2021-03-14 13:06] MED LIST changes: +DULA0.75 SQ; +INSU300I SQ; +ISOS20TA57 PO
[2021-03-14 14:08] LABS: BASOPHILS % 0.5 % (0.0-2.0); EOSINOPHILS % 3.1 % (0.0-5.0); HEMATOCRIT. 31.4 % (42.0-52.0); LYMPHOCYTES % 18.7 % (20.0-50.0); MEAN CORPUSCULAR HEMOGLOBIN 33.8 pg (28.0-32.0); MEAN CORPUSCULAR VOLUME 96.3 fL (80.0-94.0); MEAN PLATELET VOLUME 7.5 fl (7.4-10.4); MONOCYTES % 9.5 % (2.0-8.0); NEUTROPHILS % 68.2 % (40.0-76.0); PLATELET 141 x1000/uL (130-400); RED BLOOD CELL COUNT 3.26 mill/uL (4.7-6.1); RED CELL DISTRIBUTION WIDTH 14.2 % (11.6-14.6)
[2021-03-14 14:12] LABS: CHLORIDE 101 mEq/L (98-107)
[2021-03-14] MEDS ORDERED: ACETAMINOPHEN 650MG SUPP PR PRN (16:00)
[2021-03-14] MEDS ORDERED: DOCUSATE SODIUM 100MG CAPSULE PO PRN (16:00)
[2021-03-14] MEDS ORDERED: DEXTROSE 50% WATER 50ML SYRINGE IV PRN (16:00)
[2021-03-14] MEDS ORDERED: NA PHOS,M-B/NA PHOS,DI-BA ENEMA 118ML PR PRN (16:00)
[2021-03-14] MEDS ORDERED: LORAZEPAM 0.5MG TABLET PO PRN (16:00)
[2021-03-14] MEDS ORDERED: DIPHENHYDRAMINE 50MG/ML VIAL IV PRN (16:00)
[2021-03-14] MEDS ORDERED: MAGNESIUM/ALUMINUM HYDROXIDE/SIMETHICONE 30ML UDC PO PRN (16:00)
[2021-03-14] MEDS ORDERED: ONDANSETRON HCL 4MG/2ML INJ IV PRN (16:00)
[2021-03-14] MEDS ORDERED: GUAIFENESIN 200MG/10ML SUGAR FREE UDC PO PRN (16:00)
[2021-03-14] MEDS ORDERED: ACETAMINOPHEN 325MG TABLET PO PRN (16:00)
[2021-03-14] MEDS ORDERED: CLONIDINE 0.1MG TABLET PO PRN (16:00)
[2021-03-14] MEDS ORDERED: IPRATROPIUM/ALBUTEROL 0.5-3(2.5)MG/3ML NEB NEB PRN (16:00)
[2021-03-14] MEDS ORDERED: HYDROCODONE/ACETAMINOPHEN 5/325MG TABLET PO PRN (16:00)
[2021-03-14 16:45] VITALS: BP 124/66
[2021-03-14] MEDS ORDERED: BLOOD SUGAR DIAGNOSTIC STRIP TEST SCH (17:00)
[2021-03-14] MEDS ORDERED: MEDICATION NOT ON FORMULARY EA (Gabapentin 1 TAB) PO SCH (17:00)
[2021-03-14] MEDS ORDERED: GABAPENTIN 300MG CAPSULE PO SCH (17:00)
[2021-03-14] MEDS ORDERED: CALCIUM ACETATE 667MG CAPSULE PO SCH (17:00)
[2021-03-14] MEDS ORDERED: CALCIUM ACETATE 1334 MG PO SCH (17:00)
[2021-03-14] MEDS ORDERED: GEMFIBROZIL 600MG TABLET PO SCH (17:00)
[2021-03-14] MEDS ORDERED: INSULIN LISPRO 100 UNITS/ML SUBCUT SCH (18:20)
[2021-03-14] MEDS ORDERED: FAMOTIDINE 20MG TABLET PO SCH (21:00)
[2021-03-15] MEDS ORDERED: MEDICATION NOT ON FORMULARY EA (Folic Acid 1 TAB) MT SCH (09:00)
[2021-03-15] MEDS ORDERED: [UNRECOGNIZED DRUG - OTHER] PO SCH (09:00)
[2021-03-15] MEDS ORDERED: EPA PO SCH (09:00)
[2021-03-15] MEDS ORDERED: FISH OIL PO SCH (09:00)
[2021-03-15] MEDS ORDERED: DHA PO SCH (09:00)
[2021-03-15] MEDS ORDERED: FOLIC ACID 1MG TABLET PO SCH (09:00)
[2021-03-15] MEDS ORDERED: CYANOCOBALAMIN 1000 MCG PO SCH (09:00)
[2021-03-15] MEDS ORDERED: GEMFIBROZIL 600MG TABLET PO SCH (09:00)
[2021-03-15] MEDS ORDERED: ASPIRIN 81MG EC TABLET PO SCH (09:00)
[2021-03-15] MEDS ORDERED: CALCITRIOL 0.25MCG CAPSULE PO SCH (09:00)
[2021-03-15] MEDS ORDERED: OMEGA PO SCH (09:00)
[2021-03-15] MEDS ORDERED: FISH OIL/OMEGA-3 FATTY ACIDS 1000MG CAPSULE PO SCH (09:00)
[2021-03-15] MEDS ORDERED: CYANOCOBALAMIN 1000MCG TABLET PO SCH (09:00)
[2021-03-15] MEDS ORDERED: CLOPIDOGREL 75MG TABLET PO SCH (09:00)
== END 2021-03-14 16:49 | disposition home or self-care (01) ==
LOC: ER 13:06
DX: I95.9 Hypotension, unspecified (principal); E11.9 Type 2 diabetes mellitus without complications; Z79.899 Other long term (current) drug therapy; Z86.73 Personal history of transient ischemic attack (TIA), and cerebral infarction without residual deficits
CPT/HCPCS: 36415; 80053; 83605; 84484; 85025; 93005; 99284